=== PATIENT | male | born 1980 | race Caucasian/White ===

== ENCOUNTER 2021-05-25 11:46 | Observation (INO) | payer OTHER, SELFPAY ==
[2021-05-25 11:55] VITALS: BP 143/99; PULSE 92; RESP 18; TEMP 36.9; O2SAT 99; BMI 20.7
--- NOTE | 2021-05-25 12:24 | ED_ITS ---
HPI - GI Bleed General: Chief complaint: GI Bleed Stated complaint: esophageal issues Time Seen by Provider: 05/25/21 12:09 Source: patient Mode of arrival: ambulatory Limitations: no limitations History of Present Illness: 40-year-old male presents emergency room with complaint of abdominal discomfort and hematemesis. He had several episodes of hematemesis this morning vomiting enough to cover the bottom of a 5 gallon bucket with efrain red blood. He is also had multiple melanic stools this mornin g. He states they are very foul-smelling. He is not had any fever sweats or chills he has some mild abdominal discomfort. He denies any dysuria urgency or frequency. Patient states he drinks around 3-4 beers per day, yesterday he drank quite a bit of vodka. He has not been taking large amounts of any NSAIDs, he usually avoids them because he used to take too much aspirin and now has tinnitus. No history of liver disease no history of esophageal varices or previous bleeding ulcers. He is not currently taking any PPIs or H2 blockers. complaint: gross hematemesis and melena Onset (ago): hour(s) Severity: moderate Relieving factors: none Exacerbating factors: none Associated symptoms: Reports abdominal pain (Mild), nausea, poor appetite and vomiting; Denies chills, easy bruising, epistaxis, fever(s), headache(s), malaise, other bleeding, rash, syncope or weakness Review of Systems Const: Denies: fever(s), chills or malaise ENMT: Denies: throat pain or epistaxis Card: Denies: chest pain, palpitations or syncope Resp: Denies: dyspnea, productive cough or non-productive cough GI: Reports: abdominal pain (Mild), nausea, vomiting, hematemesis, GI cramping (Mild) and melena : Denies: flank pain, dysuria, urinary frequency or urinary urgency Skin/Breast: Denies: rash Neuro: Denies: headache(s) Jh/Lymph: Denies: easy bruising PFS ED PFSH: Medical History No significant past medical history Surgical History History of tonsillectomy and adenoidectomy Family History (Updated 05/25/21 @ 19:20 by Angelita Mccord MD) Other No pertinent family history Social History Alcohol intake: current Alcohol intake frequency: 3 or more drinks per day Physical Exam Const: GENERAL APPEARANCE: cooperative and comfortable ORIENTATION/CONSCIOUSNESS: Yes awake, Yes oriented to person, Yes oriented to place and Yes oriented to time HENMT: COMMON NORMALS: normocephalic, atraumatic and hearing grossly normal bilaterally HEAD & SCALP: normocephalic and atraumatic Neck/C-Spine: COMMON NORMALS: no JVD Resp: COMMON NORMALS: normal respiratory effort, No retractions, No use of accessory muscles and clear to auscultation bilaterally AUSCULTATION: clear to auscultation bilaterally Cardio: COMMON NORMALS: no JVD, regular rate, regular rhythm and No murmurs present (Cardio) RATE: regular rate RHYTHM: regular rhythm GI: COMMON NORMALS: Soft to palpation and No hepatosplenomegaly present AUSCULTATION: Yes normoactive bowel sounds PALPATION: Yes Soft to palpation, No Tenderness to palpation present (GI), No Guarding due to palpation present (GI) and Yes No hepatosplenomegaly present Extremity: COMMON NORMALS: normal to inspection, capillary refill normal, no clubbing, cyanosis or edema, no calf tenderness and no pedal edema Neuro: SENSORIUM/ORIENTATION: Yes oriented to person, Yes oriented to place and Yes oriented to time Skin: COMMON NORMALS: no rashes or lesions noted GENERAL SKIN EXAM: no rashes or lesions noted Course Vital Signs: Vital signs: Vital Signs Temperature 97.6 F 05/26/21 04:00 Pulse Rate 67 05/26/21 04:00 Respiratory Rate 17 05/26/21 04:00 Blood Pressure 123/75 05/26/21 04:00 Pulse Oximetry 98 05/26/21 04:00 MDM - GI Bleed Medical Decision Making Acute upper GI bleed stable at the moment but given the amount of blood the patient is describing having thrown up we will go ahead and put him on observation endoscopy in the morning monitor hemoglobin discussed with hospitalist and with surgery Medical Records I reviewed the patient's medical records. Lab Data I reviewed the patient's lab results. : 05/26/21 04:55 05/26/21 04:55 Radiology Impressions Abdomen/Pelvis CT 05/25/21 12:[address] evidence of acute intra-abdominal or pelvic pathology. 2. Additional findings, as above. Laboratory Results WBC 14.0 10^3/uL (4.0-10.0) H 05/25/21 12:28 RBC 5.16 10^6/uL (4.1-5.3) 05/25/21 12:28 Hgb 16.1 g/dL (11.7-16.6) 05/25/21 12:28 Hct 46.6 % (42.0-52.0) 05/25/21 12:28 MCV 90.3 fl (80-94) 05/25/21 12:28 MCH 31.2 pg (28.0-34.0) 05/25/21 12:28 MCHC 34.5 g/dL (30.0-36.0) 05/25/21 12:28 RDW 11.3 % (12.1-15.1) L 05/25/21 12:28 Plt Count 265 10^3/cmm (130-400) 05/25/21 12:28 MPV 10.4 fL (7.4-10.4) 05/25/21 12:28 Neut % (Auto) 78.5 % 05/25/21 12:28 Lymph % (Auto) 14.5 % 05/25/21 12:28 Page % (Auto) 5.6 % 05/25/21 12:28 Eos % (Auto) 0.6 % 05/25/21 12:28 Baso % (Auto) 0.4 % 05/25/21 12:28 Neut # (Auto) 10.98 10^3/uL (1.8-7.7) H 05/25/21 12:28 Lymph # (Auto) 2.0 10^3/uL (0.8-4.8) 05/25/21 12:28 Page # (Auto) 0.8 10^3/uL (0.2-0.9) 05/25/21 12:28 Eos # (Auto) 0.1 10^3/uL (0.0-0.8) 05/25/21 12:28 Baso # (Auto) 0.1 10^3/uL (0.0-0.1) 05/25/21 12:28 Nucleated RBC % (auto) 0 % 05/25/21 12:28 Nucleated RBCs # 0.0 /100WBC 05/25/21 12:28 PT 12.10 SECONDS (12.1-14.9) 05/25/21 12:28 INR 0.87 (0.8-1.2) 05/25/21 12:28 APTT 24.9 SECONDS (23.9-36.7) 05/25/21 12:28 Sodium 137 mmol/L (136-145) 05/25/21 12:28 Potassium 4.3 mmol/L (3.5-5.1) 05/25/21 12:28 Chloride 100 mmol/L (98-107) 05/25/21 12:28 Carbon Dioxide 25 mmol/L (22-29) 05/25/21 12:28 Anion Gap 16.3 (5-19) 05/25/21 12:28 BUN 27 mg/dL (6-20) H 05/25/21 12:28 Creatinine 0.9 mg/dL (0.7-1.2) 05/25/21 12:28 GFR Calculation 93.9 mL/min (90-130) 05/25/21 12: Glucose 136 mg/dL (65-115) H 05/25/21 12:28 Calculated Osmolality 291 mOsm/kg (285-295) 05/25/21 12:28 Calcium 9.8 mg/dL (8.5-10.5) 05/25/21 12:28 Total Bilirubin 0.6 mg/dL (0.15-1.2) 05/25/21 12:28 AST 20 U/L (0-40) 05/25/21 12:28 ALT 21 U/L (0-41) 05/25/21 12:28 Alkaline Phosphatase 70 IU/L (40-130) 05/25/21 12:28 Total Protein 7.7 g/dL (6.6-8.7) 05/25/21 12:28 Albumin 5.1 g/dL (3.5-5.2) 05/25/21 12:28 Globulin 2.6 g/dL (1.3-4.6) 05/25/21 12:28 Lipase 29 U/L (13-60) 05/25/21 12:28 Urine Color Yellow (Yellow) 05/25/21 12:23 Urine Appearance Clear (CLEAR) 05/25/21 12:23 Urine pH 6 (5-7) 05/25/21 12:23 Ur Specific [place] 1.015 (1.005-1.030) 05/25/21 12:23 Urine Protein Neg (Negative) 05/25/21 12:23 Urine Glucose (UA) Norm (Normal) 05/25/21 12:23 Urine Ketones Negative (Negative) 05/25/21 12:23 Urine Blood 2+ (Negative) H 05/25/21 12:23 Urine Nitrate Negative (Negative) 05/25/21 12:23 Urine Bilirubin Neg (Negative) 05/25/21 12:23 Urine Urobilinogen Norm mg/dL (Negative) 05/25/21 12:23 Ur Leukocyte Esterase Negative (Negative) 05/25/21 12:23 Urine RBC 5-10 /hpf (0-2) H 05/25/21 12:23 Urine WBC None /hpf (0-5) 05/25/21 12:23 Ur Squamous Epith Cells Rare /hpf (0-5) 05/25/21 12:23 Amorphous Sediment Not Reportable 05/25/21 12:23 Urine Bacteria Trace /hpf (NONE) 05/25/21 12:23 Urine Mucus 1+ /hpf 05/25/21 12:23 Discharge Plan Discharge Patient Disposition: Admitted As Inpatient Admit Provider: Angelita Mccord Clinical Impression: Upper gastrointestinal hemorrhage Condition: Stable Coding Level of Care Code 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
--- NOTE | 2021-05-25 12:29 | CTR_ITS ---
PROCEDURE INFORMATION: Exam: CT Abdomen And Pelvis With Contrast Exam date and time: 05/25/2021 12:56 PM Age: 40 years old Clinical indication: Abdominal pain; Additional info: Abd pain/hematemesis TECHNIQUE: Imaging protocol: Computed tomography of the abdomen and pelvis with contrast. ThisAxial, coronal and sagittal reformatted images were created and reviewed. Radiation optimization: All CT scans at this facility use at least one of these dose optimization techniques: automated exposure control; mA and/or kV adjustment per patient size (includes targeted exams where dose is matched to clinical indication); or iterative reconstruction. Contrast material: OMNI 300; Contrast volume: 95 ml; Contrast route: INTRAVENOUS (IV); COMPARISON: No relevant prior studies available. RADIATION DOSE METRICS: Total DLP (mGy-cm): 922.78 FINDINGS: Liver: Diffuse hepatic steatosis. Gallbladder and bile ducts: No radiodense gallstones. No biliary ductal dilatation. Pancreas: Unremarkable. Spleen: Unremarkable. Adrenal glands: Normal. No mass. Kidneys and ureters: No mass. No radiodense calculi. No hydronephrosis. Stomach and bowel: No bowel wall thickening. No obstruction. No pneumatosis. Appendix: Normal. Intraperitoneal space: No free fluid. No organized fluid collection. No free air. Vasculature: Unremarkable. No aneurysm. Lymph nodes: No pathologically enlarged lymph nodes. Urinary bladder: Unremarkable as visualized. Reproductive: Unremarkable. Bones/joints: No acute osseous abnormality. Mild degenerative changes. Soft tissues: Unremarkable. CT/CT abdomen pelvis w con* [id number] IMPRESSION: 1. No CT evidence of acute intra-abdominal or pelvic pathology. 2. Additional findings, as above.
[2021-05-25 12:33] VITALS: BP 146/105; PULSE 82; RESP 16; O2SAT 97
[2021-05-25 12:39] LABS: Basophils # 0.1 10^3/uL (0.0-0.1); Basophils % 0.4 %; Eosinophils # 0.1 10^3/uL (0.0-0.8); Eosinophils % 0.6 %; Hematocrit 46.6 % (42.0-52.0); Hemoglobin 16.1 g/dL (11.7-16.6); Lymphocytes % 14.5 %; Mean Corpuscular HGB Conc 34.5 g/dL (30.0-36.0); Mean Corpuscular Hemoglobin 31.2 pg (28.0-34.0); Mean Corpuscular Volume 90.3 fl (80-94); Mean Platelet Volume 10.4 fL (7.4-10.4); Monocytes # 0.8 10^3/uL (0.2-0.9); Monocytes % 5.6 %; Neutrophils # 10.98 10^3/uL (1.8-7.7); Neutrophils % 78.5 %; Nucleated Red Blood Cells % 0 %; Platelet Count 265 10^3/cmm (130-400); Red Blood Count 5.16 10^6/uL (4.1-5.3); Red Cell Distribution Width 11.3 % (12.1-15.1)
[2021-05-25 12:43] LABS: Urine Appearance Clear (CLEAR); Urine Color Yellow (Yellow); pH Urine 6 (5-7)
[2021-05-25 12:44] LABS: Add Urine Microscopic? YES; Bilirubin Urine Neg (Negative); Blood Urine 2+ (Negative); Glucose Urine UA Norm (Normal); Ketones Urine Negative (Negative); Leukocyte Esterase Urine Negative (Negative); Nitrate Urine Negative (Negative); Protein Urine Neg (Negative); Specific Gravity, Urine 1.015 (1.005-1.030); Urobilinogen Urine Norm (Negative)
[2021-05-25 12:50] LABS: Bacteria Urine TRACE /hpf; Mucus Urine 1+ /hpf; Squamous Epithelial Cell Urine RARE /hpf (0-5)
[2021-05-25 12:51] LABS: Add Urine Culture? No
[2021-05-25] MEDS: iohexol 300 mg/mL 100 mL Btl IV (12:57)
[2021-05-25 13:10] LABS: Alanine Aminotransferase 21 U/L (0-41); Albumin Level 5.1 g/dL (3.5-5.2); Alkaline Phosphatase 70 IU/L (40-130); Aspartate Amino Transferase 20 U/L (0-40); Blood Urea Nitrogen 27 mg/dL (6-20); Calcium 9.8 mg/dL (8.5-10.5); Carbon Dioxide 25 mmol/L (22-29); Chloride 100 mmol/L (98-107); Globulin 2.6 g/dL (1.3-4.6); Glomerular Filtration Rate 93.9 mL/min (90-130); Glucose 136 mg/dL (65-115); Lipase 29 U/L (13-60); Osmolality Calculated 291 mOsm/kg (285-295); Sodium 137 mmol/L (136-145); Total Bilirubin 0.6 mg/dL (0.15-1.2); Total Protein 7.7 g/dL (6.6-8.7)
[2021-05-25 13:13] LABS: Anion Gap 16.3 (5-19); Potassium 4.3 mmol/L (3.5-5.1)
[2021-05-25 13:27] LABS: INR 0.87 (0.8-1.2); Partial Thromboplastin Time 24.9 SECONDS (23.9-36.7)
[2021-05-25] MEDS: pantoprazole 40 mg SDV 80 MG IVP (14:17)
--- NOTE | 2021-05-25 14:32 | PC.NURSE ---
WHILE GIVING PT PTOTONIX IVP, PT BECAME DIAPHORETIC AND C/O NAUSEA. I WENT TO CABINET TO GET AN EMESIS BASIN. ONCE I TURNED AROUND PT WAS SHAKING. PRIMARY RN, SAURAV, CALLED TO ROOM.
[2021-05-25 14:33] VITALS: BP 109/67; PULSE 65; RESP 15; O2SAT 98
--- NOTE | 2021-05-25 14:33 | PC.NURSE ---
Called to room by FADY Huang. Pt diaphoretic and weak. BP retaken and read 72/48. Pt placed in reverse trendelenburg and HOB lowers. BP retaken and read 109/67. Pt fanned with to provide air flow. Pt states he is feeling a little better. Remaining dose of protonix given. Pt remains in reverse T-carine at this time.
--- NOTE | 2021-05-25 14:46 | PC.NURSE ---
Pt feeling better. Pt placed supine.
[2021-05-25 15:58] VITALS: BP 123/77; PULSE 67; RESP 21; O2SAT 96
[2021-05-25 16:01] VITALS: BP 123/77; PULSE 67; RESP 16; O2SAT 96
--- NOTE | 2021-05-25 16:14 | P.HP_ITS ---
Providers/Chief Complaint Admitting Physician: Angelita Mccord MD Chief Complaint: esophageal issues History of Present Illness Anish Parks is a 40 year old male who drinks beer on daily basis about 4 to 6 cans a day presented today for chief complaint of hematemesis. Patient stating that he never had any previous episodes of hematemesis, or dark stools. Today when he was walking his dog outside he started experiencing nauseous, at that point he experienced 1 episode of vomiting. In total he has had 4 episodes so far. 1 out of 4 episode was a large 1, patient is stating that he feels a whole 5 gallon bucket and had a lot of clots along blood. He started noticing blood from his first episode of vomiting. Yesterday he had [place] food around 6 PM. No fever or diarrhea but today his stools were dark and loose. He is drinking 6 cans of beer every day. No IV drug abuse. No previous history of liver pathology. He is not taking NSAIDs or aspirin on daily basis. No previous history of ulcers. In the ER he is hemoconcentrated hemoglobin is 16, hemodynamically stable, saturating well, he is on clear liquid diet, will be n.p.o. after midnight, Dr. Palma is consulted for EGD tomorrow Review of Systems Const: Denies: fever(s) Eyes: Denies: change in vision ENMT: Denies: throat pain Card: Denies: chest pain Resp: Denies: dyspnea GI: Reports: nausea, vomiting and melena : Denies: flank pain Musc: Denies: neck pain Skin/Breast: Denies: rash Neuro: Denies: headache(s) Psych: Denies: anxiety Endo: Denies: polyuria Jh/Lymph: Denies: easy bruising All/Imm: Denies: urticaria Medications/Allergies Home Medications Medication Instructions Recorded Confirmed Last Taken Type No Known Home Medications 05/25/21 05/25/21 Unknown History Allergies Allergy/AdvReac Type Severity Reaction Status Date / Time No Known Allergies Allergy Verified 05/25/21 12:38 PFSH Acute PFSH: Medical History No significant past medical history Surgical History History of tonsillectomy and adenoidectomy Family History (Updated 05/25/21 @ 19:20 by Angelita Mccord MD) Other No pertinent family history Social History Alcohol intake: current Alcohol intake frequency: 3 or more drinks per day Vitals/I&O/Wt Last Vital Signs Temp 98.5 F 05/25/21 11:55 Pulse 67 05/25/21 16:01 Resp 16 05/25/21 16:01 BP 123/77 05/25/21 16:01 Pulse Ox 96 05/25/21 16:01 Weight last 48 hrs Weight 69.4 kg Physical Exam Narrative: Young male Dehydrated Dry cracked lips Dry mucous membranes EOMI, PERRLA Nonfocal exam Saturating well on room air Abdomen soft Mild hepatomegaly No splenomegaly Abdomen is nontender Soft No sign of peritonitis Saturating well on room air Hemodynamically stable S1, S2 Appropriate mood and affect Data : 05/25/21 12:28 05/25/21 12:28 A&P Assessment and plan (1) Hematemesis: Status: Acute Plan Acute hematemesis Patient drinks 6 beers a can almost on daily basis Start thiamine Clear liquid diet N.p.o. after midnight We will need EGD for diagnostic purposes Currently hemodynamically stable First H&H could be normal secondary to hemoconcentration Repeat another H&H at night Patient was endorsing feeling thirsty and hungry, okay to have broth, Jell-O DVT prophylaxis contraindicated SCDs Full code Continue IV fluids Dr. Palma consulted Attestations Medical Necessity Statement*: Less than 2 midnights anticipated for diagnostic purposes/EGD for hematemesis Time Spent in Patient Care: 40mins Coding Level of Care Code Acute Braided Rug Maker for Chg Fwd Diagnoses Hematemesis K92.0
[2021-05-25 20:00] VITALS: BP 122/73; PULSE 73; RESP 17; TEMP 36.9; O2SAT 98
[2021-05-25 21:33] LABS: Hematocrit 43.5 % (42.0-52.0); Hemoglobin 14.8 g/dL (11.7-16.6)
[2021-05-25] MEDS: pantoprazole 40 mg SDV IVP (21:51)
[2021-05-26] VITALS (8 sets, daily range): BP systolic 115–129; BP diastolic 75–86; PULSE 60–95; RESP 13–18; TEMP 36.4–37.1; O2SAT 95–98
[2021-05-26 05:31] LABS: Alanine Aminotransferase 17 U/L (0-41); Albumin Level 4.4 g/dL (3.5-5.2); Alkaline Phosphatase 62 IU/L (40-130); Anion Gap 14.8 (5-19); Aspartate Amino Transferase 19 U/L (0-40); Blood Urea Nitrogen 18 mg/dL (6-20); Calcium 9.3 mg/dL (8.5-10.5); Carbon Dioxide 23 mmol/L (22-29); Chloride 104 mmol/L (98-107); Globulin 2.4 g/dL (1.3-4.6); Glomerular Filtration Rate 93.9 mL/min (90-130); Glucose 109 mg/dL (65-115); Magnesium 2.4 mg/dL (1.7-2.3); Osmolality Calculated 286 mOsm/kg (285-295); Potassium 4.8 mmol/L (3.5-5.1); Sodium 137 mmol/L (136-145); Total Bilirubin 0.7 mg/dL (0.15-1.2); Total Protein 6.8 g/dL (6.6-8.7)
[2021-05-26 05:35] LABS: Basophils # 0.1 10^3/uL (0.0-0.1); Basophils % 0.5 %; Eosinophils # 0.2 10^3/uL (0.0-0.8); Eosinophils % 2.4 %; Hematocrit 42.9 % (42.0-52.0); Hemoglobin 14.5 g/dL (11.7-16.6); Lymphocytes # 2.5 10^3/uL (0.8-4.8); Lymphocytes % 26.1 %; Mean Corpuscular HGB Conc 33.8 g/dL (30.0-36.0); Mean Corpuscular Hemoglobin 30.9 pg (28.0-34.0); Mean Corpuscular Volume 91.3 fl (80-94); Mean Platelet Volume 10.6 fL (7.4-10.4); Monocytes # 0.7 10^3/uL (0.2-0.9); Monocytes % 7.5 %; Neutrophils # 5.93 10^3/uL (1.8-7.7); Neutrophils % 63.2 %; Nucleated Red Blood Cells % 0 %; Platelet Count 254 10^3/cmm (130-400); Red Cell Distribution Width 11.6 % (12.1-15.1); White Blood Count 9.4 10^3/uL (4.0-10.0)
--- NOTE | 2021-05-26 08:48 | P.PN_ITS ---
Subjective Subjective: Blood pressure stable No active emesis Patient is endorsing dark stools Endorsing hunger pains Vitals/I&O/Wt Last Vital Signs Temp 98.7 F 05/26/21 07:06 Pulse 86 05/26/21 08:23 Resp 16 05/26/21 08:23 BP 128/86 05/26/21 07:06 Pulse Ox 95 05/26/21 08:23 Weight last 48 hrs Weight 69.4 kg Physical Exam Narrative: Patient is n.p.o. Clinically euvolemic Abdomen is soft Mild hepatomegaly No splenomegaly S1, S2 Satting well on room air Very pleasant and cooperative Hemoglobin PERRLA No audible stridor or wheezing Data : 05/26/21 04:55 05/26/21 04:55 A&P Assessment and plan (1) Upper gastrointestinal hemorrhage: Status: Acute (2) Hematemesis: Status: Acute Plan Hematemesis, Melanotic stool Hemoglobin stable Hemodynamically stable Patient is n.p.o. Continue Protonix Plan for EGD today He is n.p.o. 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
[2021-05-26] MEDS: sodium chloride 0.9% 1,000 ML 30 ML IV (09:25)
--- NOTE | 2021-05-26 09:52 | ANES.PREANE2 ---
Pre-Anesthetic Assessment Height/Weight: Height 1.83 m Weight 69.4 kg Temp Pulse Resp BP Pulse Ox 98.3 F 60 18 129/82 97 05/26/21 09:35 05/26/21 09:35 05/26/21 09:35 05/26/21 09:35 05/26/21 09:35 Preop Diagnosis: gi bleed Operation Date: 05/26/21 10:15 Proposed Procedures p EGD(Not Applicable) - Rashaad Palma MD Familial anesthetic complications: None Was Beta Gina taken within 24 hours: N/A Was Clonidine taken within 24 hours: N/A Last intake: > 8hrs Social Alcohol (3-4 beers night) and Tobacco Exam alert, oriented x 3, clear to auscultation bilaterally and regular rate & rhythm Airway Mallampati: Class II Dentition: other (missing tooth) GI hematemesis Anesthetic Plan ASA status: 2 Anesthesia: MAC Risk of > 500 ml blood loss (7ml/kg in children): No Medications/Allergies Home Medications Medication Instructions Recorded Confirmed Last Taken Type No Known Home Medications 05/25/21 05/25/21 Unknown History Allergies Allergy/AdvReac Type Severity Reaction Status Date / Time No Known Allergies Allergy Verified 05/25/21 12:38 Current Medications Generic Name Dose Route Start Last Admin Trade Name Freq PRN Reason Stop Dose Admin Pantoprazole Sodium 40 mg 05/25/21 21:00 05/25/21 21:51 Pantoprazole 40 Mg Sdv IVP 40 mg Q12H XOCHITL Administration PFSH Anesthesia Medical History No significant past medical history Surgical History History of tonsillectomy and adenoidectomy Family History (Updated 05/25/21 @ 19:20 by Angelita Mccord MD) Other No pertinent family history Social History Alcohol intake: current Alcohol intake frequency: 3 or more drinks per day Data Anesthesia : 05/26/21 04:55 05/26/21 04:55 Short CBC 05/25/21 05/25/21 05/26/21 Range/Units 12:28 21:22 04:55 WBC 14.0 H 9.4 (4.0-10.0) 10^3/uL Hgb 16.1 14.8 14.5 (11.7-16.6) g/dL Hct 46.6 43.5 42.9 (42.0-52.0) % MCV 90.3 91.3 (80-94) fl Plt Count 265 254 (130-400) 10^3/cmm Neut % (Auto) 78.5 63.2 % Neut # (Auto) 10.98 H 5.93 (1.8-7.7) 10^3/uL BMP 05/25/21 05/26/21 12:28 04:55 Sodium 137 137 Potassium 4.3 4.8 Chloride 100 104 Carbon Dioxide 25 23 BUN 27 H 18 Creatinine 0.9 0.9 Glucose 136 H 109 Calcium 9.8 9.3 Liver Function 05/25/21 05/26/21 Range/Units 12:28 04:55 Total Bilirubin 0.6 0.7 (0.15-1.2) mg/dL AST 20 19 (0-40) U/L ALT 21 17 (0-41) U/L Alkaline Phosphatase 70 62 (40-130) IU/L Albumin 5.1 4.4 (3.5-5.2) g/dL Urine 05/25/21 Range/Units 12:23 Urine Color Yellow (Yellow) Urine Appearance Clear (CLEAR) Urine pH 6 (5-7) Ur Specific [place] 1.015 (1.005-1.030) Urine Protein Neg (Negative) Urine Glucose (UA) Norm (Normal) Urine Ketones Negative (Negative) Urine Nitrate Negative (Negative) Urine Bilirubin Neg (Negative) Ur Leukocyte Esterase Negative (Negative) Urine RBC 5-10 H (0-2) /hpf Urine WBC None (0-5) /hpf Coags 05/25/21 12:28 PT 12.10 INR 0.87 APTT 24.9 Cardiac Studies: No Data to Display
--- NOTE | 2021-05-26 09:56 | PC.CHAP ---
Pastoral Care Encounter/Spiritual Assessment Type of Contact [] Declined hypnotherapist visit [] Patient/Family/Request visit [] Outpatient visit [] Follow-up visit [] Physician referral [] Code/Alert [x] Routine visit [] Staff referral [] Actively dying [] Patient sleeping [] Family support [] [] Out of room [] Palliative care [] [] Receiving care in room [] Pre-surgical visit [] Trauma [] Long length of stay [] ICU visit [] Other: Relational/Emotional Strength x[] Patient feels connected with others/family/visitors/staff [] Distress [] Loneliness/isolation [] Abandonment Spirituality of Patient [x] Person of Erica [x] Attends Pentecostal of their Erica [x] Believes in Prayer [] Reads Bible or Judaism materials [] There are Spiritual issues to be addressed Wash Crew Person Interventions [x] Prayer [xx Active listening [x] Non-anxious presence [x] Spiritual/emotional support [] Crisis/trauma care [] Spiritual counseling [] Bereavement support [] Provided bereavement packet [] Provided Bible/devotional materials [] Provided toy/stuffed animal, coloring book to patient or family member [] Provided Communion [] Anointing/[place] [] Salvation [x] Completed spiritual assessment [] Other: Impact on Illness or Injury [] Angry [] Fearful [] Anxious [] Often cries [] Exhaustion [] Unable to work [] Unable to attend roman catholic [] Unable to walk/stand [] Unable to read [] Unable to drive [] Unable to eat/drink [] Unable to sleep [] Unable to be with family [] Patient intubated [] Other: Summary Time spent with patient 15 min
--- NOTE | 2021-05-26 11:12 | PC.SOCIAL ---
Not yet triggered to see patient. Per rounds will have EGD today. Still having dark stools. If no findings may dc today otherwise will reevaluate tomorrow.
--- NOTE | 2021-05-26 11:38 | ANE.PACU2 ---
Inpatient post-anesthesia follow up: Airway intact: Yes Vital signs: Temperature 98.3 F Pulse Rate 60 Respiratory Rate 18 Blood Pressure 129/82 Pulse Oximetry 97 Oxygen Delivery Me thod Room Air Oxygen Flow Rate Fraction of Inspir ed Oxygen Hydration adequate: Yes Nausea and vomiting: No Pain level: 1 Mental status: Baseline
--- NOTE | 2021-05-26 11:58 | PM.DCS ---
Discharge Providers Date of Admission: 05/25/21 14:39 Date of Discharge: May 26, 2021 Attending Provider at Admission: Angelita Mccord MD Attending Provider at Discharge: Angelita Mccord MD Diagnoses at Discharge Discharge Diagnosis (1) Upper gastrointestinal hemorrhage: Status: Acute (2) Hematemesis: Status: Acute Reason for Visit Reason for Visit: esophageal issues Hospital Course Hospital Course 50-year-old male who drinks 4 to 6 cans of beer daily basis presented for 5 episodes of hematemesis. Hemoglobin remained stable throughout his hospitalization, he remained hemodynamically stable as well Hemoglobin at discharge is 14. Dr. Palma did EGD which showed alcohol-related esophagitis, gastritis. Recommended PPI twice daily. Patient will be discharged home in stable condition. He does not take NSAIDs. Counseled on alcohol abstinence. Physical Exam Narrative: Nonfocal neuro exam S1, S2 EOMI, PERRLA Euvolemic Nonfocal neuro exam Saturating well on room air Discharge Data Studies Completed and Pending Completed Studies During Hospitalization Category Date Time Status CT abdomen pelvis w con* [id number] Stat Cat Scan 05/25/21 12:29 Completed Pending at discharge Category Date Time Status Complete Blood Count w/Auto AM LABS Lab 05/27/21 04:00 Ordered Radiology Impressions Abdomen/Pelvis CT 05/25/21 12:29 IMPRESSION: 1. No CT evidence of acute intra-abdominal or pelvic pathology. 2. Additional findings, as above. Laboratory Results WBC 9.4 10^3/uL (4.0-10.0) 05/26/21 04:55 RBC 4.70 10^6/uL (4.1-5.3) 05/26/21 04:55 Hgb 14.5 g/dL (11.7-16.6) 05/26/21 04:55 Hct 42.9 % (42.0-52.0) 05/26/21 04:55 MCV 91.3 fl (80-94) 05/26/21 04:55 MCH 30.9 pg (28.0-34.0) 05/26/21 04:55 MCHC 33.8 g/dL (30.0-36.0) 05/26/21 04:55 RDW 11.6 % (12.1-15.1) L 05/26/21 04:55 Plt Count 254 10^3/cmm (130-400) 05/26/21 04:55 MPV 10.6 fL (7.4-10.4) H 05/26/21 04:55 Neut % (Auto) 63.2 % 05/26/21 04:55 Lymph % (Auto) 26.1 % 05/26/21 04:55 [place] % (Auto) 7.5 % 05/26/21 04:55 Eos % (Auto) 2.4 % 05/26/21 04:55 Baso % (Auto) 0.5 % 05/26/21 04:55 Neut # (Auto) 5.93 10^3/uL (1.8-7.7) 05/26/21 04:55 Lymph # (Auto) 2.5 10^3/uL (0.8-4.8) 05/26/21 04:55 [place] # (Auto) 0.7 10^3/uL (0.2-0.9) 05/26/21 04:55 Eos # (Auto) 0.2 10^3/uL (0.0-0.8) 05/26/21 04:55 Baso # (Auto) 0.1 10^3/uL (0.0-0.1) 05/26/21 04:55 Nucleated RBC % (auto) 0 % 05/26/21 04:55 Nucleated RBCs # 0.0 /100WBC 05/26/21 04:55 PT 12.10 SECONDS (12.1-14.9) 05/25/21 12:28 INR 0.87 (0.8-1.2) 05/25/21 12:28 APTT 24.9 SECONDS (23.9-36.7) 05/25/21 12:28 Sodium 137 mmol/L (136-145) 05/26/21 04:55 Potassium 4.8 mmol/L (3.5-5.1) 05/26/21 04:55 Chloride 104 mmol/L (98-107) 05/26/21 04:55 Carbon Dioxide 23 mmol/L (22-29) 05/26/21 04:55 Anion Gap 14.8 (5-19) 05/26/21 04:55 BUN 18 mg/dL (6-20) 05/26/21 04:55 Creatinine 0.9 mg/dL (0.7-1.2) 05/26/21 04:55 GFR Calculation 93.9 mL/min (90-130) 05/26/21 04:55 Glucose 109 mg/dL (65-115) 05/26/21 04:55 Calculated Osmolality 286 mOsm/kg (285-295) 05/26/21 04:55 Calcium 9.3 mg/dL (8.5-10.5) 05/26/21 04:55 Magnesium 2.4 mg/dL (1.7-2.3) H 05/26/21 04:55 Magnesium Cancelled 05/26/21 04:55 Total Bilirubin 0.7 mg/dL (0.15-1.2) 05/26/21 04:55 AST 19 U/L (0-40) 05/26/21 04:55 ALT 17 U/L (0-41) 05/26/21 04:55 Alkaline Phosphatase 62 IU/L (40-130) 05/26/21 04:55 Total Protein 6.8 g/dL (6.6-8.7) 05/26/21 04:55 Albumin 4.4 g/dL (3.5-5.2) 05/26/21 04:55 Globulin 2.4 g/dL (1.3-4.6) 05/26/21 04:55 Lipase 29 U/L (13-60) 05/25/21 12:28 Urine Color Yellow (Yellow) 05/25/21 12:23 Urine Appearance Clear (CLEAR) 05/25/21 12:23 Urine pH 6 (5-7) 05/25/21 12:23 Ur Specific [place] 1.015 (1.005-1.030) 05/25/21 12:23 Urine Protein Neg (Negative) 05/25/21 12:23 Urine Glucose (UA) Norm (Normal) 05/25/21 12:23 Urine Ketones Negative (Negative) 05/25/21 12:23 Urine Blood 2+ (Negative) H 05/25/21 12:23 Urine Nitrate Negative (Negative) 05/25/21 12:23 Urine Bilirubin Neg (Negative) 05/25/21 12:23 Urine Urobilinogen Norm mg/dL (Negative) 05/25/21 12:23 Ur Leukocyte Esterase Negative (Negative) 05/25/21 12:23 Urine RBC 5-10 /hpf (0-2) H 05/25/21 12:23 Urine WBC None /hpf (0-5) 05/25/21 12:23 Ur Squamous Epith Cells Rare /hpf (0-5) 05/25/21 12:23 Amorphous Sediment Not Reportable 05/25/21 12:23 Urine Bacteria Trace /hpf (NONE) 05/25/21 12:23 Urine Mucus 1+ /hpf 05/25/21 12:23 Vitals Last Vital Signs Temp 98.3 F 05/26/21 09:35 Pulse 60 05/26/21 09:35 Resp 18 05/26/21 09:35 BP 129/82 05/26/21 09:35 Pulse Ox 97 05/26/21 09:35 Discharge Plan Discharge Patient Disposition: Home Condition: Stable Prescriptions: New omeprazole 20 mg tablet,delayed release (DR/EC) 20 mg PO BID Qty: 240 1RF No Action No Known Home Medications 0RF Discharge Orders: Discharge Order (Routine); Ordered 05/26/21 Ordered By: Angelita Mccord Discharge Diet: Regular Discharge Activity: Increase activity as tolerated Patient Instructions: GI Discharge Instructions, Opioid Safety Discharge Attestations Time Spent in Discharge Care*: less than 30 min Quality Metrics Clinical Quality Measures [ No reported AMI, CVA or VTE this stay] Coding Level of Care Code Acute Chg FW DC note Diagnoses Upper gastrointestinal hemorrhage K92.2 Hematemesis K92.0
== END 2021-05-26 12:43 | disposition home or self-care (01) ==
LOC: ER 12:26 → MEDSURG 15:23
PROVIDERS: Surgery; Admitting Provider Internal Medicine; Emergency Provider Family Medicine; Visit Provider Internal Medicine
PROC: 0DJ08ZZ Inspection of Upper Intestinal Tract, Via Natural or Artificial Opening Endoscopic (ICD-10-PCS; CPT 43235; principal; 2021-05-26 10:15)
DX: K92.0 Hematemesis (principal); K31.4 Gastric diverticulum; K20.90 Esophagitis, unspecified without bleeding; K29.70 Gastritis, unspecified, without bleeding
CPT/HCPCS: 36415; 43235; 74177; 80053; 81001; 83690; 83735; 85014; 85018; 85025; 85610; 85730; 96374; 96376; 99285; C9113; G0378; J2704; J7030; Q9967

== ENCOUNTER 2023-03-04 11:29 | Emergency (ER) | payer OTHER, SELFPAY ==
[2023-03-04 11:42] VITALS: BP 158/113; PULSE 85; RESP 16; TEMP 36.4; O2SAT 96; BMI 21.7
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
[2023-03-04] MEDS: lidocaine 1% INJ 10 mL (per mL) 20 ML XX (12:38)
[2023-03-04] MEDS: tetanus-dipt-pertussis 0.5 mL SDV IM (13:01)
[2023-03-04 13:02] VITALS: BP 158/113; PULSE 85; RESP 16; TEMP 36.4; O2SAT 96
== END 2023-03-04 13:02 | disposition home or self-care (01) ==
PROVIDERS: Emergency Provider Emergency Medicine
DX: S01.511A Laceration without foreign body of lip, initial encounter (principal); W22.8XXA Striking against or struck by other objects, initial encounter; Z23 Encounter for immunization
CPT/HCPCS: 12011; 90471; 90715; 99283

== ENCOUNTER 2023-03-13 13:15 | Emergency (ER) | payer OTHER, SELFPAY ==
[2023-03-13 13:29] VITALS: BP 151/108; PULSE 85; RESP 16; O2SAT 97
--- NOTE | 2023-03-13 13:40 | ED_ITS ---
HPI - Wound/Laceration General: Chief Complaint: Wound/Laceration Stated Complaint: stitches removal Time Seen by Provider: 03/13/23 13:30 Source: patient Mode of arrival: ambulatory History of Present Illness: Sutures she like removed he had them placed 9 days ago in the emergency room by Dr. Howard. No problems no drainage he has a full martino and mustache that are embedded in the eschar in his mustache just to the left of the philtrum Onset (ago): day(s) (9) Location: face [facility] ED PFSH: Medical History No significant past medical history Surgical History History of tonsillectomy and adenoidectomy Family History (Updated 05/25/21 @ 19:20 by Angelita Mccord MD) Other No pertinent family history Social History Alcohol intake: current Alcohol intake frequency: 3 or more drinks per day Physical Exam Narrative: EXAM NARRATIVE: 3 sutures removed from the upper lip to the left of the philtrum without difficulty. Some of the superficial skin must have been devascularized and there is a small portion that came loose with removal of the eschar to remove the stitches. Course Vital Signs: Vital signs: Vital Signs Pulse Rate 85 03/13/23 13:29 Respiratory Rate 16 03/13/23 13:29 Blood Pressure 151/108 03/13/23 13:29 Pulse Oximetry 97 03/13/23 13:29 Oxygen Delivery Me thod Room Air 03/13/23 13:29 MDM - Wound/Laceration Medical Decision Making Sutures removed wound care instructions given follow-up as needed. Apply topical antibiotic ointment to the wound twice daily until healed No radiology studies performed this visit Discharge Plan Discharge Patient Disposition: Home Clinical Impression: Facial laceration, Encounter for removal of sutures Condition: Stable Prescriptions: No Action No Known Home Medications Discharge Orders: Discharge ED (Routine); Ordered 03/13/23 Ordered By: Rc House Patient Instructions: Opioid Safety, Pain Management Activity Restrictions/Additional Instructions: Apply [id number] topical antibiotic ointment to wound twice daily until completely healed Coding Level of Care Code ED Radiologic Technology Teacher for Esthela Hearn
== END 2023-03-13 13:42 | disposition home or self-care (01) ==
PROVIDERS: Emergency Provider Family Medicine
DX: Z48.02 Encounter for removal of sutures (principal)
CPT/HCPCS: 99282